=== PATIENT | male | born 2000 | race Caucasian/White ===

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

== ENCOUNTER 2019-04-19 22:30 | Emergency (ER) | payer OTHER ==
[2019-04-20] MEDS ORDERED: KETOROLAC 30 MG/ML VIAL IVP STA (00:34)
[2019-04-20] MEDS ORDERED: HYDROmorphone 1 MG/ML CARPUJECT IVP STA (01:08)
--- NOTE | 2019-04-20 01:11 | ED Physician Documentation ---
PD HPI UPPER EXT INJURY - Stated complaint Stated Complaint: L SHOULDER INJ - History obtained from History obtained from: Patient, Family - History of Present Illness Location: Left, Shoulder Type of injury: Fall Where injury occurred: Home Timing - onset: Today Timing - duration: Hours Timing - details: Abrupt onset, Still present Improved by: Rest, Immobilization Worsened by: Moving, Palpating Associated symptoms: No: Weakness, Numbness, Tingling, Swelling Contributing factors: No: Anticoagulated Similar symptoms before: Diagnosis (shoulder dislocation) Recently seen: Not recently seen - Additonal information Additional information: fell backward and dislocated L shoulder. Review of Systems Constitutional: denies: Fever Eyes: denies: Loss of vision, Decreased vision Ears: denies: Ear pain Nose: denies: Rhinorrhea / runny nose, Congestion, Foreign Body Throat: denies: Sore throat Cardiac: denies: Chest pain / pressure, Palpitations Respiratory: denies: Dyspnea, Cough GI: denies: Abdominal Pain, Nausea, Vomiting : denies: Dysuria, Frequency PD PAST MEDICAL HISTORY - Past Medical History Cardiovascular: None Respiratory: None Endocrine/Autoimmune: None GI: None : None HEENT: None Psych: None Musculoskeletal: None Derm: None - Past Surgical History Past Surgical History: No Ortho: Other - Present Medications Home Medications: Ambulatory Orders Medication Instructions Recorded Confirmed No Known Home Medications 01/01/17 01/01/17 - Allergies Allergies/Adverse Reactions: Allergies Allergy/AdvReac Type Severity Reaction Status Date / Time Sulfa (Sulfonamide Allergy Hives Verified 01/01/17 19:58 Antibiotics) - Social History Does the pt smoke?: No Smoking Status: Never smoker Does the pt drink ETOH?: No Does the pt have substance abuse?: No - Immunizations Immunizations are current?: Yes - POLST Patient has POLST: No PD ED PE NORMAL - Vitals Vital signs reviewed: Yes - General General: Alert and oriented X 3, No acute distress, Well developed/nourished - HEENT HEENT: Atraumatic, PERRL, EOMI - Neck Neck: Supple, no meningeal sign - Cardiac Cardiac: RRR, No murmur - Respiratory Respiratory: No respiratory distress, Clear bilaterally - Abdomen Abdomen: Soft, Non tender - Back Back: No CVA TTP, No spinal TTP - Derm Derm: Normal color, Warm and dry, No rash - Extremities Extremities: Other (There is anterior fullness to the left shoulder and any movement is severly painful. 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, No motor deficit, No sensory deficit, Normal speech Eye Opening: Spontaneous Motor: Obeys Commands Verbal: Oriented GCS Score: 15 - Psych Psych: Normal mood, Normal affect Results - Vitals Vitals: Vital Signs - 24 hr 04/19/19 04/20/19 04/20/19 22:30 01:13 02:00 Temperature 37.4 C Heart Rate 85 88 84 Respiratory 15 16 16 Rate Blood Pressure 136/75 H 141/82 H 155/99 H O2 Saturation 97 97 100 04/20/19 04/20/19 04/20/19 02:05 02:12 02:16 Temperature Heart Rate 98 92 70 Respiratory 20 16 16 Rate Blood Pressure 142/94 H 133/80 H O2 Saturation 98 96 04/20/19 02:36 Temperature Heart Rate 77 Respiratory 16 Rate Blood Pressure 150/81 H O2 Saturation 99 Oxygen O2 Source Room air - Rads (name of study) shoulder L post reductino Radiology: Prelim report reviewed (Impression: Reduction of glenohumeral dislocation. No definite fracture appreciated.), EMP read indepedently, See rad report shoulder L Radiology: Prelim report reviewed (Impression: Anterior shoulder dislocation.), EMP read indepedently, See rad report Procedures - Reduction Body part reduced: Left, Shoulder Fracture or dislocation: Dislocation Anesthesia: Conscious sedation, Dilaudid, Propofol Shoulder reduction technique: Traction - counter tract Reduction aftercare: NV intact, Xray confirms reduction, Sling, Patient tolera jemma well - Procedural sedation Sedation prep: Informed consent, Time out completed, Last meal, PE performed, AHA 1 - healthy Sedation medications: dilaudid, toradol, propofol (130mg) Patient status during sedation: Responds to tactile, Vitals remained stable, Maintained airway, Recovered uneventfully Sedation recovery: Recovered uneventfully, Back to baseline Time in sedation (Minutes): 6 PD MEDICAL DECISION MAKING - ED course Complexity details: reviewed results, re-evaluated patient, considered differential, d/w patient, d/w family ED course: 19-year-old male with a dislocated left shoulder is administered propofol for conscious sedation with reduction of his dislocation. He is placed into a sling will follow up with orthopedics. Departure - Departure Disposition: 01 Home, Self Care Clinical Impression: Shoulder dislocation Qualifiers: Encounter type: initial encounter Laterality: left Qualified Code(s): S43.005A - Unspecified dislocation of left shoulder joint, initial encounter Condition: Stable Instructions: ED Dislocation Shoulder Redu Follow-Up: Your, orthopedic surgeon [Other]
[2019-04-20] MEDS ORDERED: PROPOFOL 200 MG/20 ML VIAL IVP STA (01:43)
--- NOTE | 2019-04-20 01:53 | XRAY Report ---
Reason: shoulder dislocation Procedure Date: 04/20/2019 Accession Number: [id number] / [id number] Procedure: XR - Shoulder 3 View LT CPT Code: FULL RESULT: EXAM: LEFT SHOULDER RADIOGRAPHY EXAM DATE: 04/20/2019 01:25 AM. CLINICAL HISTORY: Shoulder dislocation. COMPARISON: SHOULDER 3 VIEW LT 07/23/2016 5:23 PM. TECHNIQUE: 3 views. FINDINGS: Bones: Normal. No fracture or bone lesion. Joints: Anterior humeral dislocation from the glenoid. Soft tissues: Soft tissue swelling. IMPRESSION: Anterior shoulder dislocation. RADIA
--- NOTE | 2019-04-20 02:40 | XRAY Report ---
Reason: post reduction Procedure Date: 04/20/2019 Accession Number: [id number] / [id number] Procedure: XR - Shoulder 2 View LT CPT Code: FULL RESULT: EXAM: LEFT SHOULDER RADIOGRAPHY EXAM DATE: 04/20/2019 02:33 AM. CLINICAL HISTORY: Post reduction. COMPARISON: SHOULDER 3 VIEW LT 04/20/2019 1:13 AM SHOULDER 1 VIEW LT 07/23/2016 6:43 PM. TECHNIQUE: 2 views. FINDINGS: Bones: Normal. No fracture or bone lesion. Joints: Reduction of dislocation. Soft tissues: Soft tissue swelling. IMPRESSION: Reduction of glenohumeral dislocation. No definite fracture appreciated. RADIA
[2019-04-20 03:01] VITALS: BP 114/80
== END 2019-04-20 03:00 | disposition home or self-care (01) ==
LOC: ED 22:30
DX: S43.015A Anterior dislocation of left humerus, initial encounter (principal); W18.30XA Fall on same level, unspecified, initial encounter; Y93.6A Activity, physical games generally associated with school recess, summer camp and children; Y92.009 Unspecified place in unspecified non-institutional (private) residence as the place of occurrence of the external cause
CPT/HCPCS: 23650; 73030; 94770; 96374; 99283; 99284; J1170

== ENCOUNTER 2020-07-23 18:53 | Emergency (ER) | payer BC, OTHER ==
[2020-07-23] MEDS ORDERED: SODIUM CHLORIDE 0.9% 1,000 ML IV STA (19:01)
[2020-07-23] MEDS ORDERED: HYDROmorphone 1 MG/ML CARPUJECT IVP STA (19:01)
[2020-07-23] MEDS ORDERED: PROPOFOL 200 MG/20 ML VIAL IVP STA (19:01)
--- NOTE | 2020-07-23 19:02 | ED Physician Documentation ---
PD HPI UPPER EXT INJURY - Stated complaint Stated Complaint: LEFT SHOULDER INJ - History obtained from History obtained from: Patient - History of Present Illness Location: Left - Additonal information Additional information: 20-year-old gentleman with recurrent left shoulder dislocations. Probably 20 times in the past. Actually had a surgery on it for years ago. He was pulled by a rope with that arm today and dislocated his shoulder. No other injuries. Review of Systems Constitutional: reports: Reviewed and negative Nose: reports: Reviewed and negative Throat: reports: Reviewed and negative PD PAST MEDICAL HISTORY - Past Medical History Cardiovascular: None Respiratory: None Endocrine/Autoimmune: None GI: None : None HEENT: None Psych: None Musculoskeletal: None Derm: None - Past Surgical History Past Surgical History: No Ortho: Other - Present Medications Home Medications: Ambulatory Orders Medication Instructions Recorded Confirmed No Known Home Medications 01/01/17 01/01/17 - Allergies Allergies/Adverse Reactions: Allergies Allergy/AdvReac Type Severity Reaction Status Date / Time Sulfa (Sulfonamide Allergy Hives Verified 01/01/17 19:58 Antibiotics) - Social History Does the pt smoke?: No Smoking Status: Never smoker Does the pt drink ETOH?: No Does the pt have substance abuse?: No - Immunizations Immunizations are current?: Yes - POLST Patient has POLST: No PD ED PE NORMAL - Vitals Vital signs reviewed: Yes - General General: Alert and oriented X 3, No acute distress - HEENT HEENT: Pharynx benign - Cardiac Cardiac: RRR, No murmur - Respiratory Respiratory: No respiratory distress, Clear bilaterally - Extremities Extremities: Other (Visible deformity of the left shoulder consistent with anterior dislocation.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, Normal speech Results - Vitals Vitals: Vital Signs - 24 hr 07/23/20 07/23/20 07/23/20 19:03 19:16 19:18 Temperature 36.9 C Heart Rate 71 73 78 Respiratory 18 18 22 Rate Blood Pressure 160/100 H 160/100 H 152/98 H O2 Saturation 99 100 97 Oxygen O2 Source Room air - Rads (name of study) Post reduction x-ray of the left shoulder Radiology: EMP read contemporaneously (Unremarkable) Procedures - Reduction Body part reduced: Left, Shoulder Fracture or dislocation: Dislocation Anesthesia: Conscious sedation Shoulder reduction technique: [place] / ext rotation, Traction - counter tract Reduction aftercare: Alignment improved, Sling - Procedural sedation Sedation prep: Informed consent, Time out completed, 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 It was successfully reduced with propofol. Departure - Departure Disposition: 01 Home, Self Care Clinical Impression: Shoulder dislocation Qualifiers: Encounter type: initial encounter Laterality: left Qualified Code(s): S43.005A - Unspecified dislocation of left shoulder joint, initial encounter Condition: Good Record reviewed to determine appropriate education?: Yes Instructions: ED Dislocation Shoulder Redu Comments: Ibuprofen as needed for pain. Start gentle range of motion exercises after a couple of days. Return if worse. Forms: Activity restrictions
[2020-07-23 19:19] VITALS: BP 152/98
--- NOTE | 2020-07-23 19:43 | XRAY Report ---
PROCEDURE: Shoulder 3 View LT INDICATIONS: post reduction TECHNIQUE: 3 views of the shoulder were acquired. COMPARISON: 04.20.19 shoulder examination. FINDINGS: Bones: No fractures or dislocations. No suspicious bony lesions. Visualized ribs appear intact. Soft tissues: No suspicious soft tissue calcifications. IMPRESSION: No acute fracture. No osseous lesion. If symptoms and/or clinical suspicion for patholog y continue, further assessment with repeat plain films, or advanced imaging (e.g., CT, MRI, or bone s can) is recommended for further assessment. Reviewed by: Jyotsna Garay MD on 07/23/2020 7:42 PM PDT Approved by: Jyotsna Garay MD on 07/23/2020 7:42 PM PDT Station ID: [id number]
== END 2020-07-23 20:30 | disposition home or self-care (01) ==
LOC: ED 18:53
DX: S43.005A Unspecified dislocation of left shoulder joint, initial encounter (principal)
CPT/HCPCS: 23655; 73030; 96374; 99284; 99285; J1170; 94770

== ENCOUNTER 2022-11-10 10:58 | Emergency (ER) | payer BC ==
[2022-11-10 11:34] VITALS: BP 98/70
--- NOTE | 2022-11-10 14:20 | ED Physician Documentation ---
History of Present Illness - Stated complaint Stated Complaint: FEVER,N/V/D - Chief complaint Chief Complaint: Fever - Additonal information Additional information: 22-year-old male presents to the emergency department for evaluation of flulike symptoms. Symptoms began 5 days ago. Has had fevers up to 101. He has had cough vomiting and diarrhea. Last vomited 18 hours ago and is now keeping liquids down. He has had 3-4 watery stools a day. No recent travel. Not yet vaccinated for the flu. Non-smoker. Denies any pertinent past medical history otherwise and takes no prescribed medications. Review of Systems Constitutional: reports: Fever, Fatigue. denies: Chills, Myalgias Nose: reports: Reviewed and negative Throat: reports: Reviewed and negative Cardiac: denies: Chest pain / pressure, Palpitations Respiratory: reports: Cough. denies: Dyspnea GI: reports: Reviewed and negative : reports: Reviewed and negative Skin: reports: Reviewed and negative PD PAST MEDICAL HISTORY - Past Medical History Cardiovascular: None Respiratory: None Endocrine/Autoimmune: None GI: None : None HEENT: None Psych: None Musculoskeletal: None Derm: None - Past Surgical History Past Surgical History: No Ortho: Other - Present Medications Home Medications: Ambulatory Orders Medication Instructions Recorded Confirmed No Known Home Medications 01/01/17 01/01/17 - Allergies Allergies/Adverse Reactions: Allergies Allergy/AdvReac Type Severity Reaction Status Date / Time Sulfa (Sulfonamide Allergy Hives Verified 01/01/17 19:58 Antibiotics) - Social History Does the pt smoke?: No Smoking Status: Never smoker Does the pt drink ETOH?: No Does the pt have substance abuse?: No - Immunizations Immunizations are current?: Yes - POLST Patient has POLST: No PD ED PE NORMAL - General General: Alert and oriented X 3, No acute distress, Well developed/nourished - HEENT HEENT: Atraumatic, Moist mucous membranes - Neck Neck: Supple, no meningeal sign, No adenopathy - Cardiac Cardiac: RRR, No murmur - Respiratory Respiratory: No respiratory distress, Clear bilaterally - Abdomen Abdomen: Normal bowel sounds, Soft - Back Back: No CVA TTP, No spinal TTP - Derm Derm: Normal color, Warm and dry, No rash - Extremities Extremities: No deformity, No tenderness to palpate, Normal ROM s pain - Neuro Neuro: Alert and oriented X 3, gray tender 2-12 intact Eye Opening: Spontaneous Motor: Obeys Commands Verbal: Oriented GCS Score: 15 Results - Vitals Vitals: Vital Signs - 24 hr 11/10/22 11:32 Temperature 37.2 C Heart Rate 99 Respiratory 19 Rate Blood Pressure 98/70 O2 Saturation 97 Oxygen O2 Source Room air - Labs Labs: Laboratory Tests 11/10/22 13:35 Influenza A (Rapid) POSITIVE H Influenza B (Rapid) Negative PD MEDICAL DECISION MAKING - ED course Complexity details: reviewed results, re-evaluated patient, considered differential, d/w patient ED course: 22-year-old Male presents to the emergency department for evaluation of flulike symptoms began 5 days ago. He has tested positive for flu today. He is outside the window of treatment for consideration of Tamiflu. Cardiopulmonary ausc ultation was unremarkable. Unremarkable vitals. No hypoxia or respiratory distress. He is discharged home in stable condition with usual routine care measures discussed for flu as well as emergent return precautions. Departure - Departure Disposition: 01 Home, Self Care Clinical Impression: Influenza A Condition: Stable Record reviewed to determine appropriate education?: Yes Instructions: ED Flu Comments: Micheal you have tested positive for influenza A today. This is a cause of the seasonal flu. It usually is accompanied by fevers for 3 to 7 days. People often have nausea diarrhea. Here in the emergency department your vital signs are normal. When I listen to your lungs they also sound normal. Because you have had the symptoms for 5 days you are not a candidate for Tamiflu. I recomme nd you continue to take Tylenol and ibuprofen for body aches fever and discomfort. The mainstay of treatment however is making sure he stay well- hydrated so please ensure that you drink lots of liquids or Pedialyte. Return to the emergency department if you find your symptoms do not improve after 7 to 10 days, you have uncontrolled vomiting any bloody diarrhea
== END 2022-11-10 15:02 | disposition home or self-care (01) ==
LOC: ED 10:58
DX: J10.1 Influenza due to other identified influenza virus with other respiratory manifestations (principal)
CPT/HCPCS: 87275; 87276; 99282; 99283

== ENCOUNTER 2023-06-07 18:08 | Emergency (ER) | payer BC ==
[2023-06-07] MEDS ORDERED: PROPOFOL 200 MG/20 ML VIAL IVP STA ×2 (18:18→20:10)
[2023-06-07] MEDS ORDERED: HYDROmorphone 1 MG/ML CARPUJECT IVP STA ×2 (18:20→19:39)
--- NOTE | 2023-06-07 18:26 | ED Physician Documentation ---
History of Present Illness - Stated complaint Stated Complaint: L SHOULDER INJ - Additonal information Additional information: 23-year-old male who has a history of recurrent left shoulder dislocations presents to the emergency department with acute shoulder pain. He believes it is dislocated again. This is likely the 27th time in his lifetime. He was simply trying to hold the dog back with the leash when he sneezed. The shoulder is felt to be anteriorly dislocated on exam. He typically requires conscious sedation for reduction. Last drink a protein shake about 2 hours ago Review of Systems Musculoskeletal: reports: Joint pain PD PAST MEDICAL HISTORY - Past Medical History Cardiovascular: None Respiratory: None Endocrine/Autoimmune: None GI: None : None HEENT: None Psych: None Musculoskeletal: None Derm: None - Past Surgical History Past Surgical History: No Ortho: Other - Present Medications Home Medications: Ambulatory Orders Medication Instructions Recorded Confirmed No Known Home Medications 01/01/17 01/01/17 - Allergies Allergies/Adverse Reactions: Allergies Allergy/AdvReac Type Severity Reaction Status Date / Time Sulfa (Sulfonamide Allergy Hives Verified 06/07/23 18:22 Antibiotics) - Social History Does the pt smoke?: No Smoking Status: Never smoker Does the pt drink ETOH?: No Does the pt have substance abuse?: No - Immunizations Immunizations are current?: Yes - POLST Patient has POLST: No PD ED PE NORMAL - General General: Alert and oriented X 3, No acute distress - HEENT HEENT: PERRL, Pharynx benign - Neck Neck: Supple, no meningeal sign - Extremities Extremities: No: Normal ROM s pain (Left shoulder felt to be dislocated anteriorly. Does not allow movement or exam. Neurovascular intact distally.) Results - Vitals Vitals: Vital Signs - 24 hr 06/07/23 06/07/23 06/07/23 18:10 20:03 20:06 Temperature 36.7 C Heart Rate 94 99 83 Respiratory 16 13 18 Rate Blood Pressure 153/101 H 155/104 H 144/88 H O2 Saturation 98 98 99 Oxygen O2 Source Room air - Rads (name of study) left shulder xr Relevant Findings:: Final report received (Left anterior shoulder dislocation) left shoulder xt post reduction Relevant Findings:: EMP independent interpretation of test (+ reduction) Procedures - Reduction Body part reduced: Left, Shoulder Fracture or dislocation: Dislocation Shoulder reduction technique: [place] / ext rotation Reduction aftercare: NV intact, Xray confirms reduction, Alignment improved, Sling - Procedural sedation Sedation prep: Informed consent, Time out completed, Last meal (1700), ASA 1 - healthy Sedation Medications: propofol Mallampati classification: II Patient status during sedation: Drowsy, Responds to verbal, Vitals remained stable, Maintained airway, Recovered uneventfully Sedation recovery: Recovered uneventfully, Back to baseline PD Medical Decision Making - ED course Complexity details: reviewed results, re-evaluated patient, d/w patient ED course: 23-year-old male presents emergency department for left anterior shoulder dislocation. He estimates this is the 27th time his shoulder has been dislocated occurred today when he was simply holding his dog's leash which was pulling him and he sneezed. Initial x-ray does confirm an anterior dislocation. Using conscious sedation and propofol the shoulder was easily reduced using external rotation. X-ray confirms reduction. Patient is placed in a sling. Advised to follow-up with orthopedics. Usual emergent return precautions discussed. Departure - Departure Disposition: 01 Home, Self Care Clinical Impression: Anterior dislocation of left shoulder Qualifiers: Encounter type: initial encounter Qualified Code(s): S43.015A - Anterior dislocation of left humerus, initial encounter Condition: Stable Record reviewed to determine appropriate education?: Yes Comments: Micheal the x-ray postreduction confirms that the shoulder is now within the socket joint. I encourage you to wear the sling for the next several days. C ontinue to follow-up with your orthopedist. Return to the ER for any other emergent concerns
--- NOTE | 2023-06-07 19:24 | XRAY Report ---
PROCEDURE: Shoulder 3 View LT INDICATIONS: pain TECHNIQUE: 3 views of the shoulder were acquired. COMPARISON: None. FINDINGS: Bones: 3 views of the left shoulder demonstrate anterior dislocation. A Hill-Sachs deformity is note d. No suspicious bony lesions. Visualized ribs appear intact. Soft tissues: No suspicious soft tissue calcifications. IMPRESSION: Left anterior shoulder dislocation. Reviewed by: Everardo Torres on 06/07/2023 6:23 PM MANJINDER Approved by: Everardo Torres on 06/07/2023 6:23 PM MANJINDER Station ID: [id number]
[2023-06-07 20:34] VITALS: BP 148/87
--- NOTE | 2023-06-07 20:35 | XRAY Report ---
PROCEDURE: Shoulder 2 View LT INDICATIONS: post reduction imaging TECHNIQUE: 2 views of the shoulder were acquired. COMPARISON: X-ray shoulder 06/07/2023, 07/23/2020 FINDINGS: Bones: There has been interval reduction of previous dislocation. There is good anatomic alignment. Visualized fracture. No suspicious bony lesions. Visualized ribs appear intact. Soft tissues: No suspicious soft tissue calcifications. IMPRESSION: Interval reduction of previous dislocation with good anatomic alignment. No visualized acute fracture . However, occult injury cannot be excluded. Recommend short interval imaging follow-up in 7-10 days as clinically indicated for additional evaluation. Reviewed by: Roxanna Brandon MD on 06/07/2023 8:34 PM PDT Approved by: Roxanna Brandon MD on 06/07/2023 8:34 PM PDT Station ID: [id number]
== END 2023-06-07 20:32 | disposition home or self-care (01) ==
LOC: ED 18:08
DX: S43.015A Anterior dislocation of left humerus, initial encounter (principal); X58.XXXA Exposure to other specified factors, initial encounter; Y93.K1 Activity, walking an animal
CPT/HCPCS: 23650; 73030; 96374; 99283; 99285; J1170